=== PATIENT | female | born 1955 | race Hispanic/Latino ===

== ENCOUNTER 2019-02-26 11:48 | Day surgery (SDC) | payer MEDICARE ==
[2019-02-26] MEDS ORDERED: SODIUM CHLORIDE 0.9% 1000 ML 1,000 ML IV SCH (12:30)
[2019-02-26] MEDS ORDERED: SODIUM CHLORIDE 0.9% 1000 ML 1,000 ML ONE (12:41)
--- NOTE | 2019-02-26 12:41 | Anesthesia Consultation ---
Anesthesia Consult and Med Hx Date of service: 02/26/19 - Airway Anesthetic Teeth Evaluation: Partials ROM Head & Neck: Adequate Mental/Hyoid Distance: Inadequate Mallampati Class: Class III Intubation Access Assessment: Possibly Difficult - Pulmonary Exam CTA: Yes - Cardiac Exam Cardiac Exam: RRR - Pre-Operative Health Status ASA Pre-Surgery Classification: ASA3 Proposed Anesthetic Plan: MAC - Pulmonary Hx Smoking: Yes (quit 20 yrs ago) Hx Respiratory Symptoms: No - Cardiovascular System Hx Hypertension: Yes Hx Coronary Artery Disease: Yes (s/p stent x2 2012; neg nuc ST last week per patient) Hx Heart Attack/AMI: No Hx Cardia Arrhythmia: Yes Hx Pacemaker: Yes Hx Internal Defibrillator: No - Central Nervous System Hx Seizures: No CVA: No - Gastrointestinal Hx Gastroesophageal Reflux Disease: No - Endocrine Hx Renal Disease: No Hx Liver Disease: No Hx Insulin Dependent Diabetes: Yes Hx Thyroid Disease: No - Hematic Hx Anemia: Yes - Additional Comments Anesthesia Medical History Comments: No hx anesthetic complications. Off ASA x 5 days, off eliquis x 3 days.
--- NOTE | 2019-02-26 12:42 | Anesthesia Day of Surgery ---
Anesthesia Day of Surgery - Day of Surgery Patient Examined: Yes Patient H&P Reviewed: Yes Patient is NPO: Yes Beta Blockers: Yes
[2019-02-26] MEDS ORDERED: PROPOFOL 200 MG/20 ML VIAL IV ONE ×3 (12:44)
--- NOTE | 2019-02-26 14:35 | Procedure Note ---
Date of procedure: 02/26/19 Pre-op diagnosis: Anemia Post-op diagnosis: other (Esophagitis/Gastric Nodule/Gastritis/R/O Celiac Disease/Multiple Colon Polyps/Minor,Left Colon Diverticuli/Minor,Internal Hemorrhoid) Procedure: EGD withBiopsy/ Colonoscopy with Snare Polypectomy Anesthesia: [facility] Surgeon: ARNAV DIAS Estimated blood loss: minimal Pathology: list Specimen disposition: to lab Condition: stable Disposition: same day (Avoid aspirin and NSAID for 4 days; otherwise resume home medication. Follow up in 1 tp 2 weeks.)
--- NOTE | 2019-02-26 14:43 | Operative Report ---
PROCEDURE: Esophagogastroduodenoscopy with biopsy. INDICATIONS: The patient is a 63-year-old white female with an underlying history of coronary artery disease, diabetes mellitus who has a strong family history of cancer, lately has been noted to have iron deficiency anemia. EGD was done to assess for the problem. DESCRIPTION OF PROCEDURE: Procedure was done after getting informed consent with MAC anesthesia. Instrument was passed through the hypopharynx into the esophagus, which showed [id number] erosive esophagitis. Stomach showed gastritis and gastric nodule in the proximal stomach. Biopsies were made from the gastric nodule. Additional biopsy was done from the gastric body, angular incisura and the gastric antrum to rule out for H. pylori and atrophic gastritis. The pylorus was patent. The duodenum in the first and second portion appeared normal. Biopsy was done from the second part to rule out for possible celiac disease. There was minimal bleeding associated with the procedure. No complications associated with the procedure. ASSESSMENT: Anemia, gastric nodule involving the proximal stomach, [id number] erosive esophagitis, rule out celiac disease. PLAN: To treat the patient with PPI. Continue with present treatment and care and to do a colonoscopy for further assessment of the source of the patient's anemia. The procedure was done in the GI lab with assistance of the GI lab team, which included Francine Meng, Oleg sparrow, and with assistance of anesthesia. JOB# [id number] ELA/SHIRA
--- NOTE | 2019-02-26 14:56 | Operative Report ---
PROCEDURE: Colonoscopy with snare polypectomy. INDICATIONS: This is a 63-year-old white female with an underlying history of diabetes, hypertension and coronary artery disease with a strong family history of cancer. She has been having persistent anemia. EGD showed presence of gastric nodule, gastritis and bbhy-[id number] erosive esophagitis. Biopsy was also done to rule out for possible celiac disease. Colonoscopy was done to make sure if there was not any significant lower GI pathology. Last colonoscopy done a few years ago. She had multiple polyps at that time. Repeat colonoscopy was done to make sure that there was not any significant lower GI pathology present. DESCRIPTION OF PROCEDURE: Procedure was done after getting informed consent with MAC anesthesia. Initial rectal exam was unremarkable. Instrument was passed through the rectum onto the cecum, which was identified with ileocecal valve and the appendiceal orifice. The cecum was also visualized on the retroverted view. No additional pathology was noted. The visualization was fair. Cecum, ascending colon, transverse colon showed normal mucosa. There was minor left colon diverticula noted in the descending colon, there were 2 polyps that were removed, one by hot snare polypectomy and the other by cold snare polypectomy. In addition, there was a rectal polyp that was also removed by hot snare polypectomy and retrieved. There was minimal bleeding from the polypectomy sites. No complications associated with the procedure. The rectum showed minor internal hemorrhoid on the retroverted view. ASSESSMENT: Anemia; multiple colon polyps, 2 in the descending, 1 in the rectum, removed by snare polypectomy; minor left colon diverticula; minor internal hemorrhoid. The patient will be asked to avoid aspirin and aspirin-related products for the next few days. Labs will be checked for ferritin, TIBC and vitamin B12 as well as gastrin. Await for the biopsy results. If the patient has persistence of anemia, she may require a capsule endoscopy to be done to assess for possible small bowel arteriovenous malformation that may be contributing to her anemia. The procedure was done in the GI lab with assistance of the GI lab team, which included, Oleg García, and with assistance of Anesthesia. JOB# [id number] ELA/SHIRA
[2019-02-26 15:19] VITALS: BP 118/82
--- NOTE | 2019-02-27 16:46 | Post Anesthesia Evaluation ---
- Post Anesthesia Evaluation Patient Participated: Yes Airway Patent: Yes Stable Respiratory Function: Yes Nausea/Vomiting: No Temp > 96.8F: Yes Pain Manageable: Yes Adequeate Hydration: Yes Anesthesia Complications: No Block Receding Appropriately: Not Applicable Patient on Ventilator: No
== END 2019-02-26 11:49 | disposition home or self-care (01) ==
LOC: GIO 11:48
DX: D50.9 Iron deficiency anemia, unspecified (principal); D12.4 Benign neoplasm of descending colon; D12.8 Benign neoplasm of rectum; K29.50 Unspecified chronic gastritis without bleeding; K64.8 Other hemorrhoids; K57.30 Diverticulosis of large intestine without perforation or abscess without bleeding; I25.10 Atherosclerotic heart disease of native coronary artery without angina pectoris; E11.9 Type 2 diabetes mellitus without complications; K21.0 Gastro-esophageal reflux disease with esophagitis; I42.9 Cardiomyopathy, unspecified; I10 Essential (primary) hypertension; F32.9 Major depressive disorder, single episode, unspecified; F41.9 Anxiety disorder, unspecified; Z80.0 Family history of malignant neoplasm of digestive organs; Z80.1 Family history of malignant neoplasm of trachea, bronchus and lung; Z80.8 Family history of malignant neoplasm of other organs or systems; Z88.5 Allergy status to narcotic agent; Z79.82 Long term (current) use of aspirin; Z79.899 Other long term (current) drug therapy; Z95.0 Presence of cardiac pacemaker; Z98.890 Other specified postprocedural states; Z88.8 Allergy status to other drugs, medicaments and biological substances
CPT/HCPCS: 36415; 43239; 45385; 82607; 82728; 82747; 82941; 82962; 88305; 88342; J2704; J7030

== ENCOUNTER 2020-06-20 09:36 | Outpatient (CLI) | payer MEDICARE ==
--- NOTE | 2020-06-20 11:57 | Vascular Lab Report ---
Abdominal vascular Ultrasound HISTORY: UPPER ABDOMINAL PAIN. Generalized abdominal pain for the past 2 years which is associated w ith eating, unintentional weight loss over the past year TECHNIQUE: Grayscale and color imaging performed. COMPARISON: None FINDINGS: The abdominal aorta is normal in size and demonstrates distal tapering. Maximal peak systol ic velocity is seen distally measuring 86 cm/s. The celiac axis is widely patent with peak systolic velocity of 124 cm/s. The SMA is patent with peak systolic velocity measuring 228 cm/s proximally just beyond the origin. V isually, no stenosis or significant acute vascular angle is identified. Distal to this segment in the mid SMA the peak systolic velocity is 155 cm/s and then continuing distally is 94 cm/s. IMPRESSION: Mildly elevated peak systolic velocity within the proximal SMA which is otherwise widely patent without an acute vascular angle identified. Consider follow-up CT angiogram for further evalua tion. Signer Name: Jakob Escalona MD Signed: 06/20/2020 11:53 AM Workstation Name: [id number]
== END 2020-06-20 09:37 | disposition home or self-care (01) ==
LOC: VAS 09:36
PROVIDERS: ATTEND Surgery Vascular Surgery
DX: R10.10 Upper abdominal pain, unspecified (principal)
CPT/HCPCS: 93979